=== PATIENT | male | born 1965 | race Caucasian/White ===

== ENCOUNTER → 2018-01-26 | Day surgery (SDC) | payer OTHER ==
[~2018-01-26] MED LIST: LIDOCAINE 2% PF Vial for OR 5 ML VIAL.; PROPOFOL 40 ML IV
[2018-01-26] MEDS: IV RINGERS,LACTATED 1000ML 1,000 ML IV (07:39)
== END | disposition home or self-care (01) ==
LOC: SURG 07:07
DX: Z12.11 Encounter for screening for malignant neoplasm of colon (principal); K57.30 Diverticulosis of large intestine without perforation or abscess without bleeding; K64.0 First degree hemorrhoids; Z72.89 Other problems related to lifestyle; Z98.890 Other specified postprocedural states; Z79.899 Other long term (current) drug therapy
CPT/HCPCS: 45378; J2704

== ENCOUNTER → 2018-10-15 | Outpatient (CLI) | payer SELFPAY ==
[2018-01-26 08:31] VITALS: BP 110/68
[~2018-10-15] MED LIST changes: -LIDOCAINE 2% PF Vial for OR 5 ML VIAL.; +OMEG-131 PO; -PROPOFOL 40 ML IV
--- NOTE | 2018-10-15 10:57 | KCIC ---
EXAM: CT calcium scoring without intravenous contrast. HISTORY: Cardiovascular screening. TECHNIQUE: Computed tomographic images of the chest were obtained according to a CT calcium scoring protocol without contrast. Multiplanar reformatting was performed. *One or more of the following individualized dose reduction techniques were utilized for this examination: 1. Automated exposure control. 2. Adjustment of the mA and/or kV according to patient size. 3. Use of iterative reconstruction technique. COMPARISON: None. FINDINGS: The heart is normal in size. The aorta is normal in caliber. There is no evidence of a distal or hilar lymphadenopathy on the [id number]. There is mild bilateral gynecomastia. There is no infiltrate, pleural effusion or pneumothorax. There is a 1.5 mm nodule within the right lower lobe, likely a minimally calcified granuloma. No suspicious nodule is seen. The upper abdomen is unremarkable. There are degenerative changes throughout the thoracic spine, including disc bulges and endplate remodeling at multiple levels. There is a suspected broad-based posterior central disc osteophyte complex at T12-L1 and right paracentral disc osteophyte complex at T10-T11. Calcium score: LM - 0 LAD - 0 CX - 0 RCA - 0 TOTAL - 0 IMPRESSION: 1. CT calcium score of 0. 2. No acute thoracic finding. Electronically signed by: Charlene Diop MD (10/15/2018 10:54 AM) [place] [id number]
== END | disposition home or self-care (01) ==
LOC: KCIC CT 09:24
DX: Z13.6 Encounter for screening for cardiovascular disorders (principal); N62 Hypertrophy of breast
CPT/HCPCS: 75571

== ENCOUNTER → 2019-09-11 | Outpatient (CLI) | payer OTHER ==
[2018-01-26 08:31] VITALS: BP 110/68
--- NOTE | 2019-09-11 15:28 | KCIC ---
MR of the left knee HISTORY: Left knee injury 10 days ago. Pain and instability. TECHNIQUE: Routine multiplanar sequences are obtained. FINDINGS: Mild signal within the medial meniscus without convincing evidence of a tear. No evidence of lateral meniscal tear. Anterior cruciate ligament demonstrates a high-grade tear/rupture. Pivot shift subchondral marrow contusion/nondisplaced fracture at the posterior lateral tibial plateau. There is also a small marrow contusion at the posterior medial tibial plateau. Posterior cruciate ligament intact. Medial collateral ligament demonstrates a partial proximal tear, also involving the deep capsular meniscofemoral attachment. Iliotibial band unremarkable. Fibular collateral ligament, biceps femoris tendon and popliteus tendon are intact. Extensor mechanism intact. Small joint effusion. Trace Johnston's cyst. Mild soft tissue edema or contusion around the knee. More focal subcutaneous fluid accumulation anterior to the lower patella and patellar tendon, nonspecific. No evidence of acute fracture. No aggressive bone destruction. No evidence of acute articular cartilage defect or advanced DJD. IMPRESSION: 1. High-grade anterior cruciate ligament tear with pivot shift bone injuries at the posterior tibial plateaus. 2. Mild medial meniscal signal but no definitive tear. 3. Proximal medial collateral ligament tear. 4. Mild soft tissue fluid anterior to the patellar tendon, likely a small hematoma or bursitis. Electronically signed by: Keyon Decker MD (09/11/2019 3:25 PM) [facility]
== END | disposition home or self-care (01) ==
LOC: KCIC MRI 13:58
PROVIDERS: ATTEND Family Medicine
DX: S83.512A Sprain of anterior cruciate ligament of left knee, initial encounter (principal); S83.412A Sprain of medial collateral ligament of left knee, initial encounter; X58.XXXA Exposure to other specified factors, initial encounter; Y93.89 Activity, other specified; Y92.89 Other specified places as the place of occurrence of the external cause; Y99.8 Other external cause status
CPT/HCPCS: 73721

== ENCOUNTER → 2019-11-04 | Day surgery (SDC) | payer OTHER ==
[~2019-11-04] VITALS: Ht 171.4 cm; Wt 83.0 kg
[~2019-11-04] MED LIST changes: +BUPIVACAINE MPF 0.5% 30 ML VIAL. ONE; +DEXAMETHASONE SOD PHOS 4 MG/ML VIAL ONE; +DOCU-109 PO; +EPINEPHrine VIAL 30 MG/30 ML VIAL ONE; +FAMOTIDINE 20 MG/2 ML VIAL ONE; +HYDROmorphone 2 MG/ML VIAL IV PRN; +HYDROmorphone 2 MG/ML VIAL ONE; +IV RINGERS,LACTATED 1000ML 1,000 ML IV SCH; +LIDOCAINE 1% PF 2 ML VIAL. ID PRN; +LIDOCAINE 1% PF 30 ML VIAL. ONE; +LIDOCAINE 2% PF 5 ML VIAL. ONE; +MIDAZOLAM HCL/PF 2 MG/2 ML VIAL. ONE; +MORPHINE SULFATE 2 MG/ML VIAL. IV PRN; +ONDA8TAB9 PO; +ONDANSETRON PF 4 MG/2 ML VIAL. IV PRN; +ONDANSETRON PF 4 MG/2 ML VIAL. ONE; +OXYC-325 PO; +PROCHLORPERAZINE 10 MG/2 ML VIAL. IV PRN; +PROPOFOL 20 ML IV ONE; +ceFAZolin SODIUM IV Push 1 GM VIAL. IVP PRN; +fentaNYL PF VIAL 100 MCG/2 ML VIAL IV PRN; +fentaNYL PF VIAL 100 MCG/2 ML VIAL ONE; +oxyCODONE/APAP 5/325 1 TAB TABLET PO ONE
--- NOTE | 2019-11-04 07:39 | DISCH ---
DISCHARGE INSTRUCTIONS Condition on Discharge Condition on Discharge: Stable Activity After Discharge Activity Instructions for Disc: Other ROM activity Other activity instructions: Okay to ambulate around the house and on flat level ground Bathing Instructions: Shower-keep dressing dry Weight Bearing Status after Di: As tolerated Diet after Discharge Diet after Discharge: Regular Wound Incision Care Wound/Incision Care: Ice to area for comfort, Keep wound/cast CDI, Change dressing Other wound/incision instructi: Okay to change dressing after [address] after DC Call your doctor for: Concerns you may have Follow-Up Follow up with: Jeremias in 2 weeks Follow Up With: Physical therapy this week CODY LOZADA II, MD Nov 04, 2019 07:39
[2019-11-04] MEDS: fentaNYL PF VIAL 100 MCG/2 ML VIAL IV PRN ×2 (09:39→09:54)
[2019-11-04 10:59] VITALS: BP 140/81
--- NOTE | 2019-11-04 13:44 | PDOC4 ---
Operative Note Operative Note Date of procedure: 11/04/2019 Surgeon: Tyshawn Lozada Asst.: Angel Parikh certified surgical tech/first assistant Preoperative diagnosis: #1 left ACL tear #2 left medial meniscus tear Postoperative diagnosis: #1 complete left ACL tear 2. Left medial meniscus tear at white white zone Procedures performed: #1 arthroscopic autograft hamstring ACL reconstruction left knee, with allograft augmentation 2. Arthroscopic partial medial meniscectomy Anesthesia: Gen. Tourniquet time: 90 min Blood loss: 10mL Complications: none Components inserted: [employer]hew 15 mm Endobutton and interference screw for tibial fixation Reason for procedure: Patient is a very pleasant gentleman who injured his knee and presented to my outpatient orthopedic surgery clinic complaining of instability and some knee pain. 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 He and had a discussion of the risks, benefits, and alternatives to the above surgery and he wished to proceed Description of procedure: Patient was greeted in the preoperative area by myself for the correct extremity was verified and marked. He was taken to the operative suite and his antibiotics were started as he was brought back. Once in the operative room, he was transferred gently supine to the operating table and secured the bed with all pressure points padded. I then conducted my examination under anesthesia demonstrated that his knee was stable to varus and valgus at 0 and 30 of flexion. Negative dial, positive with a soft endpoint, positive pivot glide. After this, we placed a padded bump laterally at his left hip, applied the nonsterile tourniquet to his left upper thigh and a padded rest across the foot of the bed to maintain his knee at 90 passively. The left lower extremity was then prepped and draped in our usual sterile fashion and we conducted our standard preoperative timeout. After this, I palpated and marked surface anatomy and christiano lines for my planned portal incisions and tibial incision. I then used a scalpel to incise skin over my standard anterolateral portal and introduced a blunt arthroscopic trocar and camera into the suprapatellar pouch. I then conducted my diagnostic arthroscopy with above noted findings and upon entering medial compartment used a spinal to localize an anteromedial portal and continued on with my diagnostic arthroscopy. At this point, I elected to remove the arthroscopic instrumentation, exsanguinate the extremity with an Esmarch and insufflated tourniquet to 250 mm. Mercury, and prepared to harvest my hamstrings. I incised skin over his hamstring insertion. I dissected subcutaneous tissue with Metzenbaums and electrocautery, cauterized bleeders as they were encountered. I used a lap sponge to sweep aside intensive cutaneous tissue over the sartorial fascia, palpated for the upper border of the hamstrings and open the sartorial fascia in line with the hamstrings. I then used to 90 clamps to clamp at the base of the tendons, taking these down sharply off the tibia and them with Metzenbaum scissors. I removed the overlying sartorial fascia and bluntly dissected them free of adhesions, and then placed an ultra braid whipstitch in each and continued freeing adhesions. Once they had good bounce past the tibial tubercle, I used a closed loop tendon harvester and harvested my hamstring tendon without complication. An yard assistant then whipstitched the remainder of the allograft and autograft tendon ends and I folded them over and measured, 9 at the femur 10 at the tibia. The graft was then secured to the Endobutton loop and placed under tension and wrapped in a moistened lap. We then directed attention back to the intra-articular portion of the procedure, and reached used to camera followed by the shaver and took down the ACL remnant. Used a combination of shaver biter and open curette for this. I inspected his [place] anatomy from an anteromedial portal and marked this with a microfracture awl. After this, I used a tip guide and identified his PCL, borders of his medial lateral menisci as well, and referenced his [place] anatomy at the tibial footprint as well and advanced Beath pin. The tip of this was then protected with a curet and we reamed using the 10 mm reamer, which corresponded to the diameter of our graft at the tibial side. After this, I cleared the tunnel debris and placed my plug. We then used a 7 mm unkg-dyw-onn guide and a hyperflexion position to advance a Beath pin into my starting point at the femur. I advanced the Beath pin followed by the Endobutton reamer, then measured and inspected my tunnel positioner to reconfirm appropriate position and I was happy with her. After measuring, we repositioned the Beath pin and again held the knee in hyperflexion. We then reamed with the acorn reamer to appropriate depth and after this had removed all equipment than the camera, I used the shaver to remove loose bony debris from the knee itself and from the tunnel and inspected my tunnel and was happy. After this, I spent more time removing some loose debris and then directed my attention back to reintroducing the Beath pin in a hyperflexion position, I used this to shuttle a suture through which was then pulled through the tibial side and used to shuttle my passing sutures for my Endobutton through my ACL reconstruction tunnels. I was unable to pull the ACL and position confirming good toggle which greatly diminished on maximal back retraction of the graft. We then started repeatedly cycled the knee. After this, pulling maximal backward traction, I placed the nitinol wire and advanced my interference screw visualizing fully seated. I then removed all attachments for this device and introduce the camera into the knee and took my final pictures and confirming no protruding foreign material or broken wire. More loose bony debris was removed at this time with vigorous Palpation posteriorly. After this, removed all excess arthroscopic fluid and the arthroscopic interpretation. Suture ends were cut. sartorial fascia was then closed with simple interrupted #2 nylon after I injected the hamstring harvest site with local anesthetic through the outer sheath of the shaver. Subcutaneous tissues closed with inverted interrupted 2-0 Vicryl. Portals and skin at tibial incision were closed with inverted interrupted Monocryl simple fashion for the portals and running subcuticular fashion for the tibial incision. Prior to wound closure, all counts were correct 2. After securing the graft, he had a negative Moshe with a solid endpoint. At this point, leg was cleansed and dried and sterile bulky soft dressing was applied followed by an Deandre wrap and hinged knee brace. He is awake from anesthesia and transferred supine to the recovery room cart and taken to the PACU stable and extubated condition. Postoperative plan is to allow weightbearing as tolerated. Hell begin PT later this week. Ill see him back in 2 weeks, sooner should a problem arise. TYSHAWN LOZADA II, MD Nov 04, 2019 13:44
== END ==
LOC: SURG 06:09
PROVIDERS: ATTEND Orthopaedic Surgery Sports Medicine
DX: S83.512A Sprain of anterior cruciate ligament of left knee, initial encounter (principal); S83.242A Other tear of medial meniscus, current injury, left knee, initial encounter; K64.9 Unspecified hemorrhoids; Z98.890 Other specified postprocedural states; Z72.89 Other problems related to lifestyle; X58.XXXA Exposure to other specified factors, initial encounter; Y93.89 Activity, other specified; Y92.89 Other specified places as the place of occurrence of the external cause; Y99.8 Other external cause status
CPT/HCPCS: 29881; 29888; A7015; C1713; C1763; J0171; J0690; J1100; J1170; J2001; J2250; J2405; J2704; J3010; J3490; J7120